=== PATIENT | female | born 1965 | race African-American/Black ===

== ENCOUNTER 2019-01-03 19:17 | Emergency (ER) | payer BC, OTHER ==
[~2019-01-03] VITALS: Ht 172.7 cm; Wt 90.7 kg
[2019-01-03] MEDS ORDERED: cloNIDine HCL 0.1 MG TAB ONE (19:45)
[2019-01-03] MEDS ORDERED: cloNIDine HCL 0.1 MG TAB PO ONE (20:00)
[2019-01-03 20:24] LABS: Basophils # (auto) 0.1 uL; Basophils % (auto) 0.7 % (0.0-2.0); Eosinophils # (auto) 0.3 uL; Eosinophils % (auto) 4.6 % (0.0-7.0); Hematocrit 38.6 % (36.0-46.0); Hemoglobin 12.5 g/dL (12.2-16.2); Lymphocytes # (auto) 1.5 uL; Lymphocytes % (auto) 20.9 % (10.0-50.0); Mean Corpuscular Hemoglobin 27.5 pg (28.0-32.0); Mean Corpuscular Hgb Conc. 32.3 g/dL (32.0-36.0); Mean Corpuscular Volume 85.2 fL (80.0-100.0); Monocytes # (auto) 0.5 uL; Monocytes % (auto) 6.8 % (0.0-12.0); Neutrophils # (auto) 4.7 uL; Nucleated Red Blood Cells % 0.1 %; Platelet Count (auto) 251 10^3/uL (140-450); Red Blood Cells 4.53 10^6/uL (4.0-5.20); Red Cell Distribution Width 13.5 % (11.8-14.3)
[2019-01-03 20:41] LABS: Albumin 3.7 g/dL (3.4-5.0); Anion Gap 9 (5-15); Blood Urea Nitrogen 9 mg/dL (7-18); Calcium 8.9 mg/dL (8.5-10.1); Carbon Dioxide 26 mmol/L (21-32); Chloride 106 mmol/L (98-107); Glucose 96 mg/dL (74-106); Potassium 3.3 mmol/L (3.5-5.1); Sodium 141 mmol/L (136-145)
[2019-01-03 20:47] LABS: Alanine Aminotransferase 21 U/L (13-56); Alkaline Phosphatase 87 U/L (45-117); Aspartate Aminotransferase 20 U/L (15-37); BUN/Creatinine Ratio 12.9; Bilirubin, Total 0.2 mg/dL (0.2-1.0); GFR African American 113 mL/min; GFR Non-African American 94 mL/min; Total Protein 8.1 g/dL (6.4-8.2)
[2019-01-04] MEDS ORDERED: ONDANSETRON ODT 4 MG TAB PO ONE (04:30)
[2019-01-04] MEDS ORDERED: HYDROcodone-ACET 5/325MG TAB PO ONE (04:30)
[2019-01-04 06:06] VITALS: BP 140/84
== END 2019-01-04 06:35 | disposition home or self-care (01) ==
LOC: ER 19:25
DX: I16.0 Hypertensive urgency (principal); R51 Headache; F41.9 Anxiety disorder, unspecified; F43.9 Reaction to severe stress, unspecified; Z90.710 Acquired absence of both cervix and uterus; Z88.0 Allergy status to penicillin
CPT/HCPCS: 36415; 70450; 80053; 84484; 85025; 93005; 99284; Q0162

== ENCOUNTER 2020-12-03 22:47 | Emergency (ER) | payer BC ==
[~2020-12-03] VITALS: Ht 175.3 cm; Wt 90.7 kg
[2020-12-04] MEDS ORDERED: IBUPROFEN 800 MG TAB PO ONE
[2020-12-04] MEDS ORDERED: ACETAMINOPHEN 500 MG TAB PO ONE
[2020-12-04 01:04] VITALS: BP 187/108
== END 2020-12-04 04:56 | disposition home or self-care (01) ==
LOC: ER 22:47
DX: S83.8X1A Sprain of other specified parts of right knee, initial encounter (principal); S63.501A Unspecified sprain of right wrist, initial encounter; S73.101A Unspecified sprain of right hip, initial encounter; S93.401A Sprain of unspecified ligament of right ankle, initial encounter; I10 Essential (primary) hypertension; Z90.710 Acquired absence of both cervix and uterus; Z88.0 Allergy status to penicillin; W01.0XXA Fall on same level from slipping, tripping and stumbling without subsequent striking against object, initial encounter; Y93.89 Activity, other specified; Y92.89 Other specified places as the place of occurrence of the external cause; Y99.8 Other external cause status
CPT/HCPCS: 73100; 73502; 73560; 73600